=== PATIENT | female | born 1995 | race Caucasian/White ===

== ENCOUNTER 2024-03-29 12:25 | Emergency (ER) | payer MEDICAID ==
[~2024-03-29] VITALS: Ht 162.6 cm; Wt 63.5 kg
[2024-03-29 12:38] VITALS: BP 104/71; PULSE 114; RESP 18; TEMP 98.3; O2SAT 91
[2024-03-29 14:53] VITALS: BP 134/70; PULSE 74; RESP 18; TEMP 97.3; O2SAT 97
== END 2024-03-29 14:56 | disposition home or self-care (01) ==
LOC: MED 12:25
DX: Z02.89 Encounter for other administrative examinations (principal); V49.9XXA Car occupant (driver) (passenger) injured in unspecified traffic accident, initial encounter; Y93.89 Activity, other specified; Y92.89 Other specified places as the place of occurrence of the external cause; Y99.8 Other external cause status
CPT/HCPCS: 99283